=== PATIENT | female | born 1925 | race Caucasian/White ===

== ENCOUNTER → 2016-08-01 | Outpatient (CLI) | payer OTHER, MEDICARE ==
[2013-04-07 13:20] VITALS: BP 129/65
--- NOTE | 2016-08-01 11:47 | RAD ---
Examination: Chest x-ray. Clinical history: Preop right TKA. Technique: PA and lateral views of the chest were obtained. Comparison: 03/30/2013. Findings: The chest is mildly rotated. 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 The cardiac and mediastinal contours are within normal limits. The thoracic aorta is calcified and t ortuous. Mitral annulus calcifications are seen associated with the cardiac silhouette. No pneumothorax or pleural effusion is noted. The lungs appear clear. The bones are diffusely osteopenic. There is minor thoracic scoliosis seen convex to the left, with an apparent lumbar scoliosis seen convex to the right. Degenerative changes are noted in the spine. No acute osseous abnormality is noted. Impression: 1. No acute disease. Reported By:
[2016-08-01 11:56] LABS: BILIRUBIN,URINE NEGATIVE (NEGATIVE); BLOOD/HEMOGLOBIN,URINE NEGATIVE (NEGATIVE); GLUCOSE, URINE NEGATIVE (NEGATIVE); KETONES,URINE NEGATIVE (NEGATIVE); LEUKOCYTE ESTERASE ,URINE 1+ (NEGATIVE); NITRITES,URINE NEGATIVE (NEGATIVE); PROTEIN,URINE 1+ (NEGATIVE); UROBILINOGEN,URINE NORMAL (NORMAL)
[2016-08-01 11:58] LABS: BASOPHILS # (AUTO) 0.1 X10^3/uL (0.0-0.1); BASOPHILS % (AUTO) 0.9 % (0.2-1.0); EOSINOPHILS % (AUTO) 0.5 % (0.9-2.9); HEMATOCRIT 41.4 % (36.0-47.0); HEMOGLOBIN 13.8 g/dL (12.0-16.0); LYMPHOCYTES # (AUTO) 2.3 X10^3/uL (1.3-2.9); LYMPHOCYTES % (AUTO) 25.3 % (21.0-51.0); MEAN CORPUSCULAR HEMOGLOBIN 31.4 pg (27.0-34.0); MEAN CORPUSCULAR HGB CONC 33.4 g/dL (33.0-35.0); MEAN CORPUSCULAR VOLUME 93.9 fL (80.0-100.0); MEAN PLATELET VOLUME 10.8 fL (7.4-11.0); MONOCYTES # (AUTO) 0.7 x10^3/uL (0.3-0.8); MONOCYTES % (AUTO) 7.9 % (0.0-13.0); NEUTROPHILS # (AUTO) 5.9 x10^3/uL (2.2-4.8); NEUTROPHILS % (AUTO) 65.4 % (42.0-75.0); PLATELET COUNT 216 X10^3/uL (150.0-450.0); RED BLOOD COUNT 4.41 X10^6/uL (3.5-5.4); RED CELL DISTRIBUTION WIDTH 12.9 % (11.6-16.5); WHITE BLOOD COUNT 9.1 X10^3/uL (3.6-10.0)
[2016-08-01 12:16] LABS: ALANINE AMINOTRANSFERASE 33 Units/L (12-78); ALBUMIN 4.3 g/dL (3.4-5.0); ALKALINE PHOSPHATASE 71 Units/L (46-116); ASPARTATE AMINO TRANSFERASE 24 Units/L (15-37); BLOOD UREA NITROGEN 17 mg/dL (7-18); CALCIUM 10.2 mg/dL (8.5-10.1); CARBON DIOXIDE 29.6 mmol/L (21-32); CHLORIDE 104 mmol/L (98-107); COR NA(FOR HYPERGLY) 142 mmol/L (136-145); CREATININE 0.97 mg/dL (0.55-1.02); GLUCOSE 113 mg/dL (65-99); SODIUM 142 mmol/L (136-145); TOTAL PROTEIN 8.1 g/dL (6.4-8.2); eGFR BLACK RACES > 60 (>60); eGFR NON BLACK RACES 57 (>60)
[2016-08-01 12:24] LABS: APPEARANCE,URINE CLEAR (CLEAR); BACTERIA,URINE NEGATIVE /HPF (NEGATIVE); COLOR,URINE YELLOW (YELLOW); RBC,URINE 0-3 /HPF (NEGATIVE); RENAL EPITHELIAL CELLS,URINE RARE /HPF (NEGATIVE); SQUAMOUS EPITHELIAL CELL,UR FEW /HPF (NEGATIVE)
== END ==
LOC: LAB 11:03
PROVIDERS: ATTEND Specialist
DX: Z01.818 Encounter for other preprocedural examination (principal); Z01.810 Encounter for preprocedural cardiovascular examination; Z01.811 Encounter for preprocedural respiratory examination; Z79.899 Other long term (current) drug therapy; Z11.8 Encounter for screening for other infectious and parasitic diseases; M17.11 Unilateral primary osteoarthritis, right knee
CPT/HCPCS: 36415; 71020; 80053; 81001; 85025; 86850; 86900; 86901; 87641; 93005; 93010

== ENCOUNTER 2016-08-05 07:16 | Inpatient (IN) | payer OTHER, MEDICARE ==
[2016-08-05] MEDS: ANCEF VIAL 1 GM ONE ×2 (07:49→08:50)
[2016-08-05] MEDS: MARCAINE 0.25% WITH EPI IJ ONE ×3 (07:50→09:22)
[2016-08-05] MEDS ORDERED: NS IRRIGATION 3000 ML 3,000 ML with BACITRACIN VIAL 50,000 UNT IR ONE ×8 (07:51)
[2016-08-05] MEDS: NS 50 ML IV + SPIKE MINIBAG* 50 ML IV ONE ×2 (07:51→08:50)
[2016-08-05] MEDS: D5 LR 1000 ML 1,000 ML IV ONE ×2 (07:51→08:09)
[2016-08-05] MEDS ORDERED: NS IRRIGATION 1000 ML 1,000 ML with BACITRACIN VIAL 50,000 UNT IR ONE ×4 (07:52)
[2016-08-05] MEDS ORDERED: FENTANYL INJ 100 mcg ONE (07:57)
[2016-08-05] MEDS ORDERED: NAROPIN 0.75% ONE (07:57)
[2016-08-05 08:06] VITALS: BMI 29.0
[2016-08-05] MEDS ORDERED: NAROPIN EPIDURAL 0.2% 400 MG, NS 250 ML IV 200 ML EPI PRN ×2 (10:00)
[2016-08-05] MEDS ORDERED: Q PUMP EPI ONE (10:00)
[2016-08-05] MEDS ORDERED: LR 1000 ML IV 1,000 ML IV ONE (10:24)
[2016-08-05] MEDS ORDERED: ZOFRAN INJ 4 MG VIAL IVP PRN (10:41)
[2016-08-05] MEDS ORDERED: DILAUDID INJ IVP PRN (10:41)
[2016-08-05] MEDS ORDERED: REGLAN INJ 10 MG VIAL IVP PRN (10:41)
[2016-08-05] MEDS ORDERED: BENADRYL INJ 50 MG VIAL IVP PRN (10:41)
[2016-08-05] MEDS ORDERED: PHENERGAN INJ 25 MG IVP PRN (10:41)
[2016-08-05] MEDS: D5 NS 1000 ML 1,000 ML IV SCH (11:32)
[2016-08-05] MEDS: MORPHINE SULFATE PCA 30 MG IV PRN ×2 (11:32→20:34)
[2016-08-05] MEDS ORDERED: NS 250 ML IV 250 ML IV ONE ×2 (13:20→17:38)
[2016-08-05] MEDS: ANCEF VIAL 1 GM 2 GM in NS 100 ML IV 100 ML IV SCH ×2 (14:22→21:46)
[2016-08-05] MEDS ORDERED: DIPRIVAN VIAL ONE (15:29)
[2016-08-05] MEDS ORDERED: EPHEDRINE SULFATE INJ ONE (15:29)
[2016-08-05] MEDS ORDERED: VERSED ONE (15:29)
[2016-08-05] MEDS ORDERED: NS 100 ML IV 0 ML IV ONE (22:19)
[2016-08-06] MEDS ORDERED: PRILOSEC PO SCH (04:00)
[2016-08-06 05:22] LABS: BLOOD UREA NITROGEN 10 mg/dL (7-18); CALCIUM 9.2 mg/dL (8.5-10.1); CARBON DIOXIDE 28.6 mmol/L (21-32); CHLORIDE 107 mmol/L (98-107); COR NA(FOR HYPERGLY) 145 mmol/L (136-145); CREATININE 0.89 mg/dL (0.55-1.02); GLUCOSE 146 mg/dL (65-99); SODIUM 144 mmol/L (136-145); eGFR BLACK RACES > 60 (>60); eGFR NON BLACK RACES > 60 (>60)
[2016-08-06 05:31] LABS: BASOPHILS # (AUTO) 0.1 X10^3/uL (0.0-0.1); BASOPHILS % (AUTO) 0.3 % (0.2-1.0); HEMATOCRIT 34.7 % (36.0-47.0); HEMOGLOBIN 11.6 g/dL (12.0-16.0); LYMPHOCYTES % (AUTO) 5.9 % (21.0-51.0); MEAN CORPUSCULAR HEMOGLOBIN 31.5 pg (27.0-34.0); MEAN CORPUSCULAR HGB CONC 33.3 g/dL (33.0-35.0); MEAN CORPUSCULAR VOLUME 94.6 fL (80.0-100.0); MEAN PLATELET VOLUME 11.2 fL (7.4-11.0); MONOCYTES # (AUTO) 1.2 x10^3/uL (0.3-0.8); MONOCYTES % (AUTO) 7.5 % (0.0-13.0); NEUTROPHILS # (AUTO) 14.1 x10^3/uL (2.2-4.8); NEUTROPHILS % (AUTO) 86.3 % (42.0-75.0); PLATELET COUNT 162 X10^3/uL (150.0-450.0); RED BLOOD COUNT 3.67 X10^6/uL (3.5-5.4); RED CELL DISTRIBUTION WIDTH 12.8 % (11.6-16.5); WHITE BLOOD COUNT 16.4 X10^3/uL (3.6-10.0)
[2016-08-06] MEDS: ANCEF VIAL 1 GM 2 GM in NS 100 ML IV 100 ML IV SCH ×3 (05:34→21:01)
[2016-08-06] MEDS ORDERED: K-RIDER 10 MEQ/NS 100 ML 10 MEQ/100 ML BAG IV PRN (05:56)
[2016-08-06] MEDS ORDERED: K-LYTE EFFERVESCENT PO PRN (05:56)
[2016-08-06] MEDS ORDERED: K-DUR TAB 20 MEQ PO PRN (05:56)
[2016-08-06] MEDS: POTASSIUM CHLORIDE LIQ 20 MEQ UDC PO PRN (06:20)
[2016-08-06] MEDS ORDERED: K-DUR TAB 20 MEQ PO SCH (09:00)
[2016-08-06] MEDS: LOVENOX INJ 30 MG SYR SC SCH ×2 (11:37→20:30)
[2016-08-06] MEDS: HYZAAR 50/12.5 MG PO SCH (11:39)
[2016-08-06] MEDS: PERCOCET TAB 5/325 MG PO PRN (11:39)
[2016-08-06] MEDS: TAB-A-VITE PO SCH (11:39)
[2016-08-06] MEDS: D5 NS 1000 ML 1,000 ML IV SCH (11:42)
[2016-08-06] MEDS ORDERED: ZOFRAN INJ 4 MG VIAL IVP PRN (13:48)
[2016-08-06] MEDS ORDERED: ZOFRAN INJ 4 MG VIAL ONE (13:51)
[2016-08-06] MEDS: NORVASC TAB 5 MG PO SCH (20:28)
[2016-08-07] MEDS: D5 NS 1000 ML 1,000 ML IV SCH ×2 (02:23→14:19)
[2016-08-07 05:25] LABS: BASOPHILS % (AUTO) 0.3 % (0.2-1.0); HEMATOCRIT 33.5 % (36.0-47.0); HEMOGLOBIN 11.3 g/dL (12.0-16.0); LYMPHOCYTES # (AUTO) 0.9 X10^3/uL (1.3-2.9); LYMPHOCYTES % (AUTO) 6.6 % (21.0-51.0); MEAN CORPUSCULAR HEMOGLOBIN 31.6 pg (27.0-34.0); MEAN CORPUSCULAR HGB CONC 33.9 g/dL (33.0-35.0); MEAN CORPUSCULAR VOLUME 93.4 fL (80.0-100.0); MEAN PLATELET VOLUME 11.5 fL (7.4-11.0); MONOCYTES # (AUTO) 1.3 x10^3/uL (0.3-0.8); NEUTROPHILS % (AUTO) 84.1 % (42.0-75.0); PLATELET COUNT 154 X10^3/uL (150.0-450.0); RED BLOOD COUNT 3.59 X10^6/uL (3.5-5.4); RED CELL DISTRIBUTION WIDTH 12.9 % (11.6-16.5); WHITE BLOOD COUNT 14.3 X10^3/uL (3.6-10.0)
[2016-08-07 05:35] LABS: BLOOD UREA NITROGEN 15 mg/dL (7-18); CALCIUM 9.3 mg/dL (8.5-10.1); CARBON DIOXIDE 29.2 mmol/L (21-32); CHLORIDE 108 mmol/L (98-107); COR NA(FOR HYPERGLY) 147 mmol/L (136-145); CREATININE 0.78 mg/dL (0.55-1.02); GLUCOSE 137 mg/dL (65-99); SODIUM 146 mmol/L (136-145); eGFR BLACK RACES > 60 (>60); eGFR NON BLACK RACES > 60 (>60)
[2016-08-07] MEDS: POTASSIUM CHLORIDE LIQ 20 MEQ UDC PO PRN (06:04)
[2016-08-07] MEDS: ANCEF VIAL 1 GM 2 GM in NS 100 ML IV 100 ML IV SCH ×3 (06:05→21:22)
[2016-08-07] MEDS ORDERED: PRILOSEC PO SCH (09:00)
[2016-08-07] MEDS: HYZAAR 50/12.5 MG PO SCH (10:08)
[2016-08-07] MEDS: TAB-A-VITE PO SCH (10:08)
[2016-08-07] MEDS: LOVENOX INJ 30 MG SYR SC SCH ×2 (10:10→21:23)
[2016-08-07] MEDS: COLACE CAP 100 MG PO SCH ×2 (10:12→21:23)
[2016-08-07] MEDS: MILK OF MAGNESIA PO SCH (10:13)
[2016-08-07] MEDS ORDERED: NS 100 ML IV + SPIKE MINIBAG* 100 ML IV ONE (13:06)
[2016-08-07] MEDS: MAGNESIUM SULFATE 1 GM/100 mL PREMIX 1 GM/100 ML BAG IV SCH ×2 (16:53→18:16)
[2016-08-07] MEDS: NORVASC TAB 5 MG PO SCH (21:23)
[2016-08-07] MEDS: K-DUR TAB 20 MEQ PO SCH (21:23)
[2016-08-08] MEDS: ANCEF VIAL 1 GM 2 GM in NS 100 ML IV 100 ML IV SCH (05:35)
[2016-08-08 05:37] LABS: BLOOD UREA NITROGEN 15 mg/dL (7-18); CALCIUM 9.2 mg/dL (8.5-10.1); CARBON DIOXIDE 29.7 mmol/L (21-32); CHLORIDE 107 mmol/L (98-107); COR NA(FOR HYPERGLY) 146 mmol/L (136-145); CREATININE 0.73 mg/dL (0.55-1.02); GLUCOSE 141 mg/dL (65-99); MAGNESIUM 2.2 mg/dL (1.7-2.9); SODIUM 145 mmol/L (136-145); eGFR BLACK RACES > 60 (>60); eGFR NON BLACK RACES > 60 (>60)
[2016-08-08 06:29] LABS: BASOPHILS % (AUTO) 0.2 % (0.2-1.0); HEMATOCRIT 32.5 % (36.0-47.0); LYMPHOCYTES % (AUTO) 6.4 % (21.0-51.0); MEAN CORPUSCULAR HEMOGLOBIN 31.8 pg (27.0-34.0); MEAN CORPUSCULAR HGB CONC 33.8 g/dL (33.0-35.0); MEAN PLATELET VOLUME 11.8 fL (7.4-11.0); MONOCYTES # (AUTO) 1.1 x10^3/uL (0.3-0.8); MONOCYTES % (AUTO) 6.8 % (0.0-13.0); NEUTROPHILS # (AUTO) 13.6 x10^3/uL (2.2-4.8); NEUTROPHILS % (AUTO) 86.6 % (42.0-75.0); PLATELET COUNT 152 X10^3/uL (150.0-450.0); RED BLOOD COUNT 3.46 X10^6/uL (3.5-5.4); RED CELL DISTRIBUTION WIDTH 12.5 % (11.6-16.5); WHITE BLOOD COUNT 15.6 X10^3/uL (3.6-10.0)
[2016-08-08 07:06] LABS: PLATELET MORPHOLOGY COMMENT NORMAL (NORMAL)
[2016-08-08] MEDS: K-DUR TAB 20 MEQ PO SCH (10:26)
[2016-08-08] MEDS: HYZAAR 50/12.5 MG PO SCH (10:26)
[2016-08-08] MEDS: COLACE CAP 100 MG PO SCH (10:26)
[2016-08-08] MEDS: TAB-A-VITE PO SCH (10:27)
[2016-08-08] MEDS: MILK OF MAGNESIA PO SCH (10:27)
[2016-08-08] MEDS: LOVENOX INJ 30 MG SYR SC SCH (10:27)
[2016-08-08] MEDS: PERCOCET TAB 5/325 MG PO PRN (10:32)
[2016-08-08 13:24] VITALS: BP 131/61
== END 2016-08-08 13:30 | disposition home health service (06) | DRG 470 ==
LOC: MED/SURG 07:16
PROVIDERS: ADMIT Specialist; ATTEND Obstetrics & Gynecology Obstetrics
PROC: 0SRC0J9 Replacement of Right Knee Joint with Synthetic Substitute, Cemented, Open Approach (ICD-10-PCS; principal; 2016-08-05 08:30)
DX: M17.11 Unilateral primary osteoarthritis, right knee (principal); R26.89 Other abnormalities of gait and mobility
CPT/HCPCS: 36415; 80048; 83735; 84132; 85025; 94762; 97535; A4216; A4222; S0020; J0690; J1650; J2250; J2271; J2405; J2795; J3010; J3490; J7120